=== PATIENT | female | born 1960 | race Caucasian/White ===

== ENCOUNTER 2025-04-03 10:18 | Emergency (ER) | payer MEDICAID ==
[~2025-04-03] VITALS: Ht 157.5 cm; Wt 77.1 kg
[2025-04-03 10:21] VITALS: BP 155/96
[2025-04-03 10:31] LABS: *BILIRUBIN,URIN NEGATIVE (NEGATIVE); *BLOOD, URINE 3+ (NEGATIVE); *COLOR,URINE YELLOW (YELLOW); *KETONES,URINE NEGATIVE (NEGATIVE); *PROTEIN,URINE NEGATIVE (NEGATIVE); *UROBILINOGEN,URINE 0.2 E.U./dl (NORMAL); LEUKOCYTE ESTERASE ,URINE 1+ (NEGATIVE); NITRITE, URINE NEGATIVE (NEGATIVE); UGLUCOSE NEGATIVE (NEGATIVE)
[2025-04-03 10:36] LABS: *CLARITY,URINE SLIGHTLY HAZY (CLEAR); SQUAMOUS EPITHELIAL CELL,UR MODERATE /HPF (NONE SEEN)
[2025-04-03 10:37] LABS: URINE AMORPHOUS URATE FEW /HPF
[2025-04-03] MEDS ORDERED: SULFAMETH/TRIMETH 800/160 MG TABLET ONE (10:46)
[2025-04-03] MEDS ORDERED: PHENAZOPYRIDINE HCL 100 MG TABLET ONE (10:46)
[2025-04-03] MEDS ORDERED: SULF1TAB48 PO (10:49)
[2025-04-03] MEDS: SULFAMETH/TRIMETH 800/160 MG TABLET PO ONE (10:49)
[2025-04-03] MEDS ORDERED: PHEN-704 PO (10:49)
[2025-04-03] MEDS: PHENAZOPYRIDINE HCL 100 MG TABLET PO ONE (10:49)
[2025-04-03] MEDS ORDERED: FLUC150T PO (10:57)
[2025-04-03 11:05] VITALS: BP 146/83; TEMP 98.7; O2SAT 98
== END 2025-04-03 11:06 | disposition home or self-care (01) ==
LOC: ER 10:18
DX: N30.91 Cystitis, unspecified with hematuria (principal); E78.5 Hyperlipidemia, unspecified; M54.50 Low back pain, unspecified; R11.0 Nausea; Z90.5 Acquired absence of kidney
CPT/HCPCS: 87086; A4606; A4663